=== PATIENT | male | born 1945 | race Caucasian/White ===

== ENCOUNTER 2023-01-23 16:44 | Emergency (ER) | payer MEDICARE, OTHER ==
[2023-01-23] MEDS ORDERED: Ondansetron PF 4 MG/2 ML Vial ONE (17:31)
[2023-01-23] MEDS ORDERED: Fentanyl 100 MCG/2 ML VIAL ONE (17:31)
[2023-01-23 17:41] LABS: ALT (SGPT) 45 U/L (8-55); AST (SGOT) 41 U/L (5-34); Albumin 3.5 g/dL (3.4-4.8); Alkaline Phosphatase 113 U/L (40-110); Anion Gap 12 mmol/L (10-20); BUN (Urea Nitrogen) 11 mg/dL (8.4-25.7); Bilirubin, Total 0.4 mg/dL (0.2-1.2); Calc. Creatinine Clearance 0 mL/min (70-130); Calcium 8.4 mg/dL (7.8-10.44); Carbon Dioxide 22 mmol/L (23-31); Chloride 106 mmol/L (98-107); Estimated GFR 97; Globulin 2.9 g/dL (2.4-3.5); Glucose 104 mg/dL (83-110); Lipase 14 U/L (8-78); Magnesium 1.9 mg/dL (1.6-2.6); Potassium 4.2 mmol/L (3.5-5.1); Protein, Total 6.4 g/dL (5.8-8.1); Sodium 136 mmol/L (136-145)
[2023-01-23 17:49] LABS: #Eosinphils 0.2 10x3/uL (0.0-0.5); #Monocytes 0.8 10x3/uL (0.0-1.1); #Neutrophils 4.8 10x3/uL (1.5-8.4); %Basophils 0.4 % (0.0-2.0); %Eosinophils 2.1 % (0.0-6.0); %Lymphocytes 16.3 % (18.0-47.0); %Monocytes 11.3 % (0.0-10.0); %Neutrophils 69.5 % (40.0-75.0); Hemoglobin 12.9 g/dL (13.5-17.5); Mean Corpuscular HGB CONC 32.8 g/dL (32.0-36.0); Mean Corpuscular Hemoglobin 30.3 pg (27.0-33.0); Mean Corpuscular Volume 92.3 fl (81.2-95.1); Mean Platelet Volume 11.4 fl (7.4-10.4); Platelet Count 212 10x3/uL (150-450); RBC Distribution Width 12.7 % (11.5-14.5); Red Blood Cell (RBC) Count 4.26 10x6/uL (4.32-5.72)
[2023-01-23] MEDS ORDERED: Iopamidol 300 61% 100 ML VIAL FS ONE (18:26)
[2023-01-23] MEDS ORDERED: levETIRAcetam 500 MG TAB ONE ×2 (20:23)
[2023-01-23 21:16] LABS: Bilirubin Neg (Negative); Blood, Urine Negative (Negative); Clarity Clear (Clear); Glucose, Urine (Dipstick) Normal (Negative); Ketone, Urine 50 mg/dL (Negative); Leukocyte Negative (Negative); Nitrite Negative (Negative); Protein, Urine (Dipstick) 15 mg/dl (Neg-Trace)
== END 2023-01-23 21:30 | disposition short-term general hospital (02) ==
LOC: CSHERS 16:44
DX: R16.0 Hepatomegaly, not elsewhere classified (principal)
CPT/HCPCS: 74177; 80053; 81003; 83690; 83735; 84484; 85025; 93005; 96374; 96375; J2405; J3010; Q9967